=== PATIENT | female | born 1995 | race Caucasian/White ===

== ENCOUNTER 2018-07-24 04:37 | Inpatient (IN) | payer OTHER ==
[~2018-07-24] VITALS: Ht 154.9 cm; Wt 84.3 kg
[~2018-07-24 04:37] MED LIST: BUSP5 PO; SERT25 PO; Verotin-Gr Cap1 EACH PO
[2018-07-24 05:56] LABS: Hematocrit 35.6 % (33.0-51.0); Mean Corpuscular HGB 29.3 pg (26.0-34.0); Mean Corpuscular HGB Conc 33.7 g/dL (31.5-36.5); Mean Corpuscular Volume 87 fL (80-100); Mean Platelet Volume 12.4 fL (9.1-12.4); Platelet Count 194 K/mm3 (150-400); RDW Coefficient Variation 13.1 % (11.7-14.2); RDW Standard Deviation 41.1 fL (35.1-46.3); White Blood Cell Count 12.73 K/mm3 (4.00-11.30)
[2018-07-24 06:18] LABS: BASOPHILS ABSOLUTE MAN 0.12 K/mm3 (0.00-0.23); BASOPHILS PERCENT MAN 1 % (0-2); EOSINOPHILS PERCENT MAN 0 % (0-6); LYMPHOCYTES ABSOLUTE MAN 3.18 K/mm3 (0.84-5.20); LYMPHOCYTES PERCENT MAN 25 % (21-46); MONOCYTES ABSOLUTE MAN 0.63 K/mm3 (0.16-1.47); MONOCYTES PERCENT MAN 5 % (4-13); NEUTROPHILS ABSOLUTE MAN 8.78 K/mm3 (1.96-9.15); SEG NEUTROPHILS PERCENT MAN 69 % (41-73); TOTAL CELLS COUNTED 100
--- NOTE | 2018-07-24 08:36 | NUR ---
07/24/18 0836 Kitty Washington REPEAT SECTION OF FEMALE . APGARS 9/9, WT 2885 GM (12/26). CORD SEGMENT SENT FOR DRUG UTOX, CORD BLOOD GIVEN TO BABY RN.
[2018-07-24 12:43] LABS: U Amphetamine Screen Not Detected; U Barbituate Screen Not Detected; U Benzodiazapine Screen Not Detected; U Buprenorphine Screen Not Detected; U Cannabinoids Screen Not Detected; U Cocaine Screen Not Detected; U Methadone Screen Not Detected; U Methamphetamine Screen Not Detected; U Opiates Screen Not Detected; U Oxycodone Screen Not Detected; U Phencyclidine Screen Not Detected; U Propoxyphene Screen Not Detected
--- NOTE | 2018-07-24 22:49 | NUR ---
PT AND FOB EDUCATED ON HOW TO BOTTLE FEED NB, HOW TO BURP NB AND ALSO RN COVERED FEEDING CUES NB WILL DO WHEN SHE IS HUNGRY. PARENTS GIVEN FEEDING LOG. RN EXPLAINED HOW TO FILL OUT AND THAT NB SHOULD BE EATING EVERY 2-4 HOURS, 10-25CC AT A TIME. PARENTS TOLD TO BURP NB EVERY 10ML TO HELP WITH GAS AND SPITTING UP. WHILE RN WAS EDUCATING, PARENTS FOCUS APPEARED TO BE TOWARDS AN EPISODE OF SPONGE DEMAR[employer] SQUARE PANTS. PARENTS DENIED HAVING ANY FURTHER QUESTIONS. EARLIER IN SHIFT SUPERVISOR [employer]INTENA[employer] CAME IN TO ANSWER CALL LIGHT. PT ASKED IF THEY COULD HAVE HELP CHANGING NB'S DIAPER. SUPERVISOR [employer] MAINTENAN[employer] EDUCATED PARENTS ON HOW TO CHANGE DIAPER. PARENTS ARE APPROPRIATE
--- NOTE | 2018-07-25 01:37 | NUR ---
PT DOING WELL. REINFORCED TO FEED BABY Q 2-3 HOURS/ CHECK DIAPER IF STILL FUSSY AT LEAST EVERY TWO HOURS OTHER [place]. REMINDED TO BURP BABY AFTER Q 10ML OF FORMULA. NO QUESTONS OR CONCERNS AT THIS TIME FROM MOTHER OR FOB. UP TO SHOWER, IAM CARRANZA[employer]Yogi, MEDIPORE DRESSING REMOVED. STERI STRIPS CLEAN, DRY, INTACT. INCISION WNL NO REDNESS, SWELLING, DRAINAGE. WILL CONTINUE TO MONITOR/ REINFORCE TEACHING.
--- NOTE | 2018-07-25 02:00 | NUR ---
FIRST PP VOID.
[2018-07-25 05:13] LABS: Hematocrit 30.5 % (33.0-51.0); Hemoglobin 10.4 g/dL (11.5-16.0); Mean Corpuscular HGB 29.6 pg (26.0-34.0); Mean Corpuscular HGB Conc 34.1 g/dL (31.5-36.5); Mean Corpuscular Volume 87 fL (80-100); Mean Platelet Volume 11.8 fL (9.1-12.4); Platelet Count 190 K/mm3 (150-400); RDW Coefficient Variation 13.2 % (11.7-14.2); RDW Standard Deviation 41.1 fL (35.1-46.3); Red Blood Cell Count 3.51 M/mm3 (3.80-5.20); White Blood Cell Count 17.39 K/mm3 (4.00-11.30)
--- NOTE | 2018-07-25 08:12 | NUR ---
EDITED, RN PRIOR PUSHED Y INSTEAD OF N. PT IS NOT IN AN UNSAFE ENVIORNMENT AND IS NOT A THREAT TO SELF
--- NOTE | 2018-07-25 14:09 | NUR ---
AMBLUATE TO CAFETERIA WITH SO
[2018-07-26] MEDS ORDERED: DOCU100 PO (09:44)
[2018-07-26] MEDS ORDERED: Percocet 5-3251 EACH PO (09:45)
[2018-07-26] MEDS ORDERED: IBUP800 PO (09:45)
--- NOTE | 2018-07-26 10:00 | NUR ---
Printed d/c instructions and teaching reviewed w/patient. Questions answered to her satisfaction. ID bands matched w/nb and verifcation form. No acute changes this shift. Pt d/c'd home ambulatory to care of fiance and family.
== END 2018-07-26 10:05 | disposition home or self-care (01) | DRG 788 ==
LOC: BC 04:37
PROVIDERS: ADMIT Obstetrics & Gynecology
PROC: 10D00Z1 Extraction of Products of Conception, Low, Open Approach (ICD-10-PCS; principal; 2018-07-24 07:30)
PROC: 3E0234Z Introduction of Serum, Toxoid and Vaccine into Muscle, Percutaneous Approach (ICD-10-PCS; 2018-07-25)
DX: O34.211 Maternal care for low transverse scar from previous cesarean delivery (principal); O77.0 Labor and delivery complicated by meconium in amniotic fluid; Z3A.40 40 weeks gestation of pregnancy; Z37.0 Single live birth; Z23 Encounter for immunization; Z88.0 Allergy status to penicillin
CPT/HCPCS: 36415; 85007; 85027; 86850; 86900; 86901; 90471; 90707; J1100; J1885; J2405; J2590; J2765; J3010; J7120

== ENCOUNTER → 2020-04-14 | Outpatient (CLI) | payer OTHER ==
[~2020-04-14] MED LIST changes: +DOCU100 PO; +IBUP800 PO; +Percocet 5-3251 EACH PO
[2020-04-15 07:47] LABS: Candida species (DNA Probe) Negative (NEGATIVE); G. vaginalis (DNA Probe) Negative (NEGATIVE); T. vaginalis (DNA Probe) Negative (NEGATIVE)
[2020-04-24 09:10] LABS: CHLAMYDIA TRACHOMATIS, NAA Negative (Negative); NEISSERIA GONORRHOEAE, NAA Negative (Negative)
== END | disposition home or self-care (01) ==
LOC: LAB 15:18 → LAB SHORT 15:18
PROVIDERS: Advanced Practice Midwife
DX: Z01.419 Encounter for gynecological examination (general) (routine) without abnormal findings (principal); Z11.3 Encounter for screening for infections with a predominantly sexual mode of transmission; N89.8 Other specified noninflammatory disorders of vagina
CPT/HCPCS: 87480; 87491; 87510; 87591; 87625; 87660; G0123

== ENCOUNTER → 2021-01-24 | Outpatient (CLI) | payer OTHER | END | disposition home or self-care (01) | LOC: LAB SHORT 12:04 → LAB 12:04 | DX: Z32.01 Encounter for pregnancy test, result positive (principal) | CPT/HCPCS: 84702 ==

== ENCOUNTER 2021-03-07 16:16 | Emergency (ER) | payer OTHER ==
[~2021-03-07] VITALS: Ht 154.9 cm; Wt 88.5 kg
[2021-03-07 16:56] LABS: Source, Urine Clean Catch
[2021-03-07 17:05] LABS: Bilirubin, Urine Neg (Neg); Blood, Urine Neg (Neg); Color, Urine Yellow (P-Yellow); Glucose Qualitative, Urine Neg (Neg); Ketones, Urine Neg (Neg); Leukocyte Esterase, Urine Neg (Neg); Nitrite, Urine Neg (Neg); Protein, Urine Neg (Neg); Specific Gravity, Urine 1.015 (1.003-1.022); Urobilinogen, Urine NORM (Normal)
[2021-03-07 18:10] LABS: Appearance, Urine Hazy (Clear)
[2021-03-07 18:11] LABS: Amorphous Mod (0-Heavy); Bacteria Few /hpf; Red Blood Cells, Urine 0-2 /hpf (0-2); Squamous Epithelial Cells Few /hpf (Few); White Blood Cells, Urine 0-2 /hpf (0-5)
== END 2021-03-07 17:52 | disposition home or self-care (01) ==
LOC: ER 16:16
PROVIDERS: Physician Assistant
DX: Z32.01 Encounter for pregnancy test, result positive (principal); Z87.891 Personal history of nicotine dependence; Z88.0 Allergy status to penicillin; Z23 Encounter for immunization
CPT/HCPCS: 0031A; 81001; 81025; 91303; 99282-25

== ENCOUNTER 2021-04-26 17:24 | Emergency (ER) | payer OTHER ==
[~2021-04-26] VITALS: Ht 154.9 cm; Wt 88.5 kg
[2021-04-26 18:00] LABS: BASOPHILS ABSOLUTE AUTO 0.05 K/mm3 (0.00-0.23); BASOPHILS PERCENT AUTO 0 % (0-2); EOSINOPHILS ABSOLUTE AUTO 0.32 K/mm3 (0.00-0.68); EOSINOPHILS PERCENT AUTO 2 % (0-6); Hematocrit 37.3 % (33.0-51.0); Hemoglobin 12.7 g/dL (11.5-16.0); IMMATURE GRAN ABSOLUTE AUTO 0.04 K/mm3 (0.00-0.10); IMMATURE GRAN PERCENT AUTO 0 % (0-1); LYMPHOCYTES ABSOLUTE AUTO 2.82 K/mm3 (0.84-5.20); LYMPHOCYTES PERCENT AUTO 21 % (21-46); MONOCYTES ABSOLUTE AUTO 0.74 K/mm3 (0.16-1.47); MONOCYTES PERCENT AUTO 6 % (4-13); Mean Corpuscular HGB 28.6 pg (26.0-34.0); Mean Corpuscular Volume 84 fL (80-100); Mean Platelet Volume 10.5 fL (9.1-12.4); NEUTROPHILS PERCENT AUTO 71 % (41-73); Platelet Count 240 K/mm3 (150-400); RDW Coefficient Variation 12.6 % (11.7-14.2); RDW Standard Deviation 38.1 fL (35.1-46.3); Red Blood Cell Count 4.44 M/mm3 (3.80-5.20); White Blood Cell Count 13.57 K/mm3 (4.00-11.30)
[2021-04-26 18:32] LABS: Alanine Aminotransfer (ALT/SGP 19 U/L (12-78); Albumin, Blood 3.3 g/dL (3.4-5.0); Albumin/Globulin Ratio 0.8 (0.8-1.8); Alk Phos 87 U/L (50-136); Anion Gap 7 mmol/L (6-16); Aspartate Aminotrans (AST/SGOT 17 U/L (12-37); Bilirubin, Total 0.3 mg/dL (0.1-1.0); Blood Urea Nitrogen 10 mg/dL (8-24); Bun/Creatinine Ratio 17.5 (12.0-20.0); CO2, Blood 21 mmol/L (21-32); Calcium, Blood 9.5 mg/dL (8.5-10.1); Chloride, Blood 109 mmol/L (98-108); Creatinine, Blood 0.57 mg/dL (0.40-1.00); Globulin, Blood 4.2 g/dL (2.2-4.0); Glomerular Filtration Rate >60 (60-); Glucose, Blood 90 mg/dL (70-99); Potassium, Blood 3.7 mmol/L (3.5-5.5); Sodium, Blood 137 mmol/L (136-145); Total Protein, Blood 7.5 g/dL (6.4-8.2)
[2021-04-26 18:35] LABS: Beta HCG, Quantitative, Serum 6672 mIU/mL (0-3)
== END 2021-04-26 23:25 | disposition home or self-care (01) ==
LOC: ER 17:24
PROVIDERS: Physician Assistant
DX: O03.4 Incomplete spontaneous abortion without complication (principal); Z88.0 Allergy status to penicillin; Z87.891 Personal history of nicotine dependence
CPT/HCPCS: 36415; 76801; 80053; 84702; 85025; 99284-25

== ENCOUNTER → 2022-05-11 | Outpatient (CLI) | payer OTHER | LOC: LAB SHORT 17:49 | DX: R82.81 Pyuria (principal) | CPT/HCPCS: 87086 ==

== ENCOUNTER → 2023-02-03 | Outpatient (CLI) | payer OTHER | END | disposition home or self-care (01) | LOC: LAB SHORT 14:55 → LAB 14:55 | DX: Z32.00 Encounter for pregnancy test, result unknown (principal) | CPT/HCPCS: 84702 ==

== ENCOUNTER 2024-08-14 20:18 | Emergency (ER) | payer OTHER ==
[~2024-08-14] VITALS: Ht 154.9 cm; Wt 95.2 kg
[2024-08-14 20:44] VITALS: BP 121/96
== END 2024-08-15 00:09 | disposition home or self-care (01) ==
LOC: ER 20:18
DX: S86.911A Strain of unspecified muscle(s) and tendon(s) at lower leg level, right leg, initial encounter (principal); Z87.891 Personal history of nicotine dependence; Z88.0 Allergy status to penicillin; Z79.899 Other long term (current) drug therapy; X58.XXXA Exposure to other specified factors, initial encounter
CPT/HCPCS: 93971; 99283-25

== ENCOUNTER → 2025-01-30 | Outpatient (CLI) | payer OTHER ==
[2025-01-30 18:10] LABS: Candida Group, PCR NOT DETECTED (NOT DETECT); Candida glabrata-krusei, PCR NOT DETECTED (NOT DETECT)
[2025-01-30 18:23] LABS: Bacterial Vaginosis PCR Positive (NEGATIVE)
[2025-01-30 18:41] LABS: Chlamydia Trachomatis Vaginal NOT DETECTED (NOT DETECT); Neisseria Gonorrhoea Vaginal NOT DETECTED (NOT DETECT)
== END | disposition home or self-care (01) ==
LOC: LAB 13:00 → LAB SHORT 13:00
PROVIDERS: Advanced Practice Midwife
DX: Z01.419 Encounter for gynecological examination (general) (routine) without abnormal findings (principal); Z11.3 Encounter for screening for infections with a predominantly sexual mode of transmission; N76.0 Acute vaginitis
CPT/HCPCS: 81515; 87491; 87591; G0123

== ENCOUNTER → 2025-02-27 | Outpatient (CLI) | payer OTHER ==
[2025-02-27 15:39] LABS: Bacterial Vaginosis PCR Negative (NEGATIVE); Candida Group, PCR NOT DETECTED (NOT DETECT); Candida glabrata-krusei, PCR NOT DETECTED (NOT DETECT)
== END | disposition home or self-care (01) ==
LOC: LAB SHORT 13:52 → LAB 13:52
PROVIDERS: Advanced Practice Midwife
DX: N76.0 Acute vaginitis (principal)
CPT/HCPCS: 81515

== ENCOUNTER 2025-05-07 19:34 | Emergency (ER) | payer OTHER ==
[~2025-05-07] VITALS: Ht 152.4 cm; Wt 93.0 kg
[2025-05-07 19:48] VITALS: BP 128/63
[2025-05-07 20:33] LABS: BASOPHILS ABSOLUTE AUTO 0.03 K/mm3 (0.00-0.23); BASOPHILS PERCENT AUTO 0 % (0-2); EOSINOPHILS ABSOLUTE AUTO 0.09 K/mm3 (0.00-0.68); EOSINOPHILS PERCENT AUTO 1 % (0-6); Hematocrit 37.6 % (33.0-51.0); Hemoglobin 12.8 g/dL (11.5-16.0); IMMATURE GRAN ABSOLUTE AUTO 0.08 K/mm3 (0.00-0.10); IMMATURE GRAN PERCENT AUTO 1 % (0-1); LYMPHOCYTES ABSOLUTE AUTO 1.86 K/mm3 (0.84-5.20); LYMPHOCYTES PERCENT AUTO 14 % (21-46); MONOCYTES ABSOLUTE AUTO 0.54 K/mm3 (0.16-1.47); MONOCYTES PERCENT AUTO 4 % (4-13); Mean Corpuscular HGB Conc 34.0 g/dL (31.5-36.5); Mean Corpuscular Volume 88 fL (80-100); NEUTROPHILS ABSOLUTE AUTO 10.62 K/mm3 (1.96-9.15); NEUTROPHILS PERCENT AUTO 80 % (41-73); NRBC ABSOLUTE 0.00 K/mm3 (0.00-0.02); NRBC Auto 0.0 /100 WBC (0.0-0.2); Platelet Count 243 K/mm3 (150-400); RDW Coefficient Variation 12.6 % (11.7-14.2); RDW Standard Deviation 39.9 fL (35.1-46.3)
[2025-05-07 20:56] LABS: Alanine Aminotransfer (ALT/SGP 28.0 U/L (12-78); Albumin, Blood 2.9 g/dL (3.4-5.0); Albumin/Globulin Ratio 0.6 (0.8-1.8); Anion Gap 9.0 mmol/L (3-11); Aspartate Aminotrans (AST/SGOT 19.0 U/L (12-37); Bilirubin, Total 0.4 mg/dL (0.1-1.0); Blood Urea Nitrogen 7.0 mg/dL (8-24); CO2, Blood 21.0 mmol/L (21-32); Calcium, Blood 9.2 mg/dL (8.5-10.1); Chloride, Blood 109.0 mmol/L (98-108); Creatinine, Blood 0.52 mg/dL (0.40-1.00); Globulin, Blood 4.5 g/dL (2.2-4.0); Glucose, Blood 111.0 mg/dL (70-99); Potassium, Blood 3.6 mmol/L (3.5-5.5); Sodium, Blood 135.0 mmol/L (136-145); Total Protein, Blood 7.4 g/dL (6.4-8.2)
[2025-05-07 21:49] LABS: Source, Urine Clean Catch
[2025-05-07 22:15] LABS: Color, Urine Yellow (P-Yellow); Glucose Qualitative, Urine Neg (Neg); Ketones, Urine 4+ (Neg); Leukocyte Esterase, Urine 1+ (Neg); Protein, Urine 3+ (Neg); Specific Gravity, Urine 1.030 (1.003-1.022); Urobilinogen, Urine 1+ (Normal)
[2025-05-07 22:28] LABS: Bilirubin, Urine 1+ (Neg)
[2025-05-07 22:30] LABS: Red Blood Cells, Urine 0-2 /hpf (0-2)
== END 2025-05-07 22:47 | disposition left against medical advice (07) ==
LOC: ER 19:34
PROVIDERS: Student in an Organized Health Care Education/Training Program
DX: O99.891 Other specified diseases and conditions complicating pregnancy (principal); R19.7 Diarrhea, unspecified; R11.2 Nausea with vomiting, unspecified; R10.9 Unspecified abdominal pain; Z3A.00 Weeks of gestation of pregnancy not specified; Z53.21 Procedure and treatment not carried out due to patient leaving prior to being seen by health care provider
CPT/HCPCS: 80053; 81001; 83690; 85025; 86850; 86900; 86901; 87086

== ENCOUNTER → 2025-07-14 | Outpatient (CLI) | payer OTHER | END | disposition home or self-care (01) | LOC: LAB SHORT 14:24 → LAB 14:24 | DX: O09.93 Supervision of high risk pregnancy, unspecified, third trimester (principal) | CPT/HCPCS: 87081; 87150 ==

== ENCOUNTER 2025-07-21 17:13 | Observation (INO) | payer OTHER ==
[~2025-07-21] VITALS: Ht 152.4 cm; Wt 92.7 kg
[2025-07-21 17:59] VITALS: BP 128/79
[2025-07-21 19:13] VITALS: BP 126/76
[2025-07-21] MEDS ORDERED: Terbutaline Sulfate 1MG / ML 1 ML Amp SC ONE (20:25)
[2025-07-21 20:35] VITALS: BP 127/67
[2025-07-21] MEDS ORDERED: METF500 PO ×2 (21:27)
[2025-07-21 21:45] VITALS: BP 122/73
[2025-07-21 23:15] VITALS: BP 127/72
[2025-07-22] MEDS ORDERED: MetFORMIN HCl 500 mg PO ONE (00:40)
[2025-07-22 02:51] VITALS: BP 119/66
[2025-07-22 07:47] VITALS: BP 118/77
== END 2025-07-22 08:25 | disposition home or self-care (01) ==
LOC: BC 17:13 → OBS 17:13 → BC 17:14 → OBS 20:25 → BC 20:31
PROVIDERS: ADMIT Advanced Practice Midwife
DX: O47.1 False labor at or after 37 completed weeks of gestation (principal); Z3A.37 37 weeks gestation of pregnancy
CPT/HCPCS: 81003; 96372; A9270; G0378; J3105; J7120